=== PATIENT | female | born 1950 | race African-American/Black ===

== ENCOUNTER 2017-06-17 10:36 | Emergency (ER) | payer MEDICARE, MEDICAID ==
[~2017-06-17] VITALS: Ht 154.9 cm; Wt 62.0 kg
[~2017-06-17 10:36] MED LIST: AMLO5TAB4 PO; DIAZ10TA4 PO; GLIP10TA10 PO; NAP5EC PO; OXCA150T5 PO; OXCA600T5 PO
[2017-06-17 14:10] VITALS: BP 160/97
[2017-06-17] MEDS ORDERED: KETOROLAC 60MG/2ML VIAL IM ONE (15:45)
== END 2017-06-17 16:46 | disposition left against medical advice (07) ==
LOC: ER 12:35
DX: M79.672 Pain in left foot (principal); M79.671 Pain in right foot; E11.9 Type 2 diabetes mellitus without complications; I10 Essential (primary) hypertension; M71.22 Synovial cyst of popliteal space [Baker], left knee; M25.474 Effusion, right foot; Z88.6 Allergy status to analgesic agent; Z88.8 Allergy status to other drugs, medicaments and biological substances; Z91.012 Allergy to eggs; Z98.890 Other specified postprocedural states
CPT/HCPCS: 93970; 99284

== ENCOUNTER → 2018-07-24 | Outpatient (CLI) | payer MEDICARE, MEDICAID ==
[~2018-07-24] MED LIST changes: +LURA20TA PO; -OXCA150T5 PO; -OXCA600T5 PO
== END | disposition home or self-care (01) ==
LOC: US 07:16
PROVIDERS: ATTEND Internal Medicine Gastroenterology
DX: R63.4 Abnormal weight loss (principal); Z90.710 Acquired absence of both cervix and uterus; I11.0 Hypertensive heart disease with heart failure; I50.9 Heart failure, unspecified; I25.10 Atherosclerotic heart disease of native coronary artery without angina pectoris; E11.9 Type 2 diabetes mellitus without complications
CPT/HCPCS: 76700; 76856

== ENCOUNTER 2019-05-11 16:00 | Emergency (ER) | payer MEDICARE, MEDICAID ==
[~2019-05-11] VITALS: Ht 162.6 cm; Wt 56.0 kg
[2019-05-11] MEDS ORDERED: ONDANSETRON HCL 4MG/2ML INJ IV STA (17:27)
[2019-05-11] MEDS ORDERED: KETOROLAC 30MG/ML VIAL IV STA (17:27)
[2019-05-11] MEDS ORDERED: SODIUM CHLORIDE 0.9% 1,000 ML IV ONE (17:27)
[2019-05-11 17:52] LABS: BASOPHILS % 0.2 % (0.0-2.0); EOSINOPHILS % 2.6 % (0.0-5.0); HEMATOCRIT. 40.4 % (36.0-48.0); HEMOGLOBIN. 13.4 g/dL (12.0-16.0); MEAN CORPUSCULAR HEMOGLOBIN 28.6 pg (28.0-32.0); MEAN CORPUSCULAR VOLUME 86.2 fL (81.0-99.0); MONOCYTES % 6.8 % (2.0-8.0); NEUTROPHILS % 41.4 % (40.0-76.0); PLATELET 250 x1000/uL (130-400); RED BLOOD CELL COUNT 4.69 mill/uL (4.2-5.4); RED CELL DISTRIBUTION WIDTH 13.5 % (11.6-14.6)
[2019-05-11 17:58] LABS: CHLORIDE 112 mEq/L (98-107)
[2019-05-11 18:01] LABS: PROTHROMBIN TIME 10.4 sec (9.6-11.0)
[2019-05-11] MEDS ORDERED: DEXTROSE 50% WATER 50ML SYRINGE IV ONE (18:15)
[2019-05-11 19:19] LABS: CLARITY URINE CLEAR (CLEAR); COLOR URINE YELLOW (YELLOW); KETONES URINE NEGATIVE (NEGATIVE); LEUKOCYTE ESTERASE URINE NEGATIVE (NEGATIVE); NITRITE URINE NEGATIVE (NEGATIVE); OCCULT BLOOD URINE NEGATIVE (NEGATIVE); PH URINE 6.5 (4.5-8.0); PROTEIN URINE NEGATIVE (NEGATIVE); SPECIFIC GRAVITY URINE 1.015 (1.005-1.030); UROBILINOGEN URINE 0.2 E.U./dL (0.2-1.0)
[2019-05-11 20:35] VITALS: BP 158/77
== END 2019-05-11 20:34 | disposition home or self-care (01) ==
LOC: ER 16:00
DX: R10.84 Generalized abdominal pain (principal); R19.7 Diarrhea, unspecified; E16.2 Hypoglycemia, unspecified; F32.9 Major depressive disorder, single episode, unspecified; Z90.710 Acquired absence of both cervix and uterus; Z90.89 Acquired absence of other organs; Z88.5 Allergy status to narcotic agent; Z91.012 Allergy to eggs; Z88.6 Allergy status to analgesic agent; Z79.899 Other long term (current) drug therapy
CPT/HCPCS: 36415; 74177; 80053; 81003; 82962; 83605; 83690; 85025; 85610; 96361; 96374; 96375; 99284; J1885; J2405; J7030

== ENCOUNTER 2023-10-15 13:10 | Emergency (ER) | payer MEDICARE, MEDICAID ==
[~2023-10-15] VITALS: Ht 154.9 cm; Wt 60.0 kg
[2023-10-15 13:20] VITALS: BP 161/79; PULSE 78; RESP 18; O2SAT 95
[2023-10-15] MEDS ORDERED: ACETAMINOPHEN 325MG TABLET PO ONE (13:45)
[2023-10-15 13:59] VITALS: TEMP 97.5
[2023-10-15 14:58] LABS: BASOPHILS % 0.2 % (0.0-2.0); EOSINOPHILS % 1.3 % (0.0-5.0); HEMATOCRIT. 44.7 % (36.0-48.0); HEMOGLOBIN. 14.6 g/dL (12.0-16.0); LYMPHOCYTES % 27.6 % (20.0-50.0); MEAN CORPUSCULAR HEMOGLOBIN 28.6 pg (28.0-32.0); MEAN CORPUSCULAR HGB CONC 32.6 g/dL (31.0-37.0); MEAN CORPUSCULAR VOLUME 87.7 fL (81.0-99.0); MEAN PLATELET VOLUME 7.9 fl (7.4-10.4); MONOCYTES % 7.9 % (2.0-8.0); PLATELET 272 x1000/uL (130-400); RED CELL DISTRIBUTION WIDTH 14.3 % (11.6-14.6); WHITE BLOOD COUNT 7.9 x1000/uL (4.5-11.0)
[2023-10-15 15:28] LABS: ALANINE AMINOTRANSFERASE 20 IU/L (10-49); ALBUMIN 3.9 g/dL (3.2-4.8); ASPARTATE AMINOTRANSFERASE 16 IU/L (<34); BILIRUBIN TOTAL 0.4 mg/dL (0.1-1.0); CALCIUM 10.8 mg/dL (8.7-10.4); CARBON DIOXIDE 30 mEq/L (21-32); CHLORIDE 99 mEq/L (98-107); CREATININE 1.1 mg/dL (0.6-1.0); GLUCOSE 272 mg/dL (70-105); POTASSIUM 4.4 mEq/L (3.5-5.1); PROTEIN TOTAL 6.8 g/dL (6.0-8.3); SODIUM 135 mEq/L (136-145); UREA NITROGEN BLOOD 31 mg/dL (9-23)
[2023-10-15 18:33] LABS: CREATINE KINASE 37 IU/L (34-145)
[2023-10-16] MEDS ORDERED: IOHEXOL-300 100 ML BOTTLE ONE (09:44)
== END 2023-10-15 19:25 | disposition home or self-care (01) ==
LOC: ER 13:30
DX: S09.90XA Unspecified injury of head, initial encounter (principal); I10 Essential (primary) hypertension; E11.9 Type 2 diabetes mellitus without complications; M79.602 Pain in left arm; Z88.5 Allergy status to narcotic agent; Z91.012 Allergy to eggs; W06.XXXA Fall from bed, initial encounter; Y93.89 Activity, other specified; Y92.89 Other specified places as the place of occurrence of the external cause; Y99.8 Other external cause status
CPT/HCPCS: 99285; 70450; 80053; 82550; 83605; 85025; 36415; 73552; 73060; 71260; 72125; 74177; Q9967

== ENCOUNTER 2024-05-26 13:21 | Emergency (ER) | payer MEDICARE, MEDICAID ==
[~2024-05-26] VITALS: Ht 154.9 cm; Wt 65.8 kg
[2024-05-26 13:31] VITALS: O2SAT 96
[2024-05-26] MEDS ORDERED: BO1 TP (14:21)
[2024-05-26] MEDS ORDERED: AMOX1TAB16 MT (14:21)
[2024-05-26] MEDS: TETANUS, DIPHTHERIA, PERTUSSIS VAC/PF 0.5ML (>10YR OLD) IM ONE (14:33)
[2024-05-26] MEDS: BACITRACIN ZINC OINT UDPKT TOP ONE (14:34)
[2024-05-26 14:47] VITALS: BP 148/87; PULSE 72; RESP 18; TEMP 98.7
== END 2024-05-26 14:48 | disposition home or self-care (01) ==
LOC: ER 13:21
DX: S80.811A Abrasion, right lower leg, initial encounter (principal); E11.9 Type 2 diabetes mellitus without complications; I10 Essential (primary) hypertension; F32.A Depression, unspecified; Z88.5 Allergy status to narcotic agent; Z91.012 Allergy to eggs; Z88.6 Allergy status to analgesic agent; Z90.89 Acquired absence of other organs; Z90.710 Acquired absence of both cervix and uterus; W55.03XA Scratched by cat, initial encounter; Y93.89 Activity, other specified; Y92.89 Other specified places as the place of occurrence of the external cause; Y99.8 Other external cause status
CPT/HCPCS: 90471; 90715; 99283

== ENCOUNTER 2024-12-21 12:43 | Emergency (ER) | payer MEDICARE, MEDICAID ==
[~2024-12-21] VITALS: Ht 154.9 cm; Wt 70.0 kg
[~2024-12-21 12:43] MED LIST changes: -AMLO5TAB4 PO; +AMLO5TAB5 PO; +AMOX1TAB16 MT; +BO1 TP; -GLIP10TA10 PO; +GLIP10TA17 PO; -NAP5EC PO; +NAPR-1495 PO
[2024-12-21 12:47] VITALS: O2SAT 98
[2024-12-21] MEDS ORDERED: ACETAMINOPHEN 325MG TABLET PO ONE (14:15)
[2024-12-21 14:21] VITALS: BP 154/78; PULSE 65; RESP 18; TEMP 36.7; O2SAT 98
== END 2024-12-21 14:22 | disposition home or self-care (01) ==
LOC: ER 12:43
DX: S16.1XXA Strain of muscle, fascia and tendon at neck level, initial encounter (principal); S40.011A Contusion of right shoulder, initial encounter; S09.90XA Unspecified injury of head, initial encounter; I10 Essential (primary) hypertension; E11.9 Type 2 diabetes mellitus without complications; F32.A Depression, unspecified; Z90.710 Acquired absence of both cervix and uterus; Z79.84 Long term (current) use of oral hypoglycemic drugs; Z79.899 Other long term (current) drug therapy; Z88.5 Allergy status to narcotic agent; W01.190A Fall on same level from slipping, tripping and stumbling with subsequent striking against furniture, initial encounter; Y93.89 Activity, other specified; Y92.89 Other specified places as the place of occurrence of the external cause; Y99.8 Other external cause status
CPT/HCPCS: 73030; 99284; A4606